=== PATIENT | female | born 1950 | race Caucasian/White ===

== ENCOUNTER 2019-11-05 17:30 | Emergency (ER) | payer OTHER ==
--- NOTE | 2019-11-05 17:43 | PDOC ---
History of Present Illness - General Chief Complaint: Injury Stated Complaint: FELL Time Seen by Provider: 11/05/19 17:43 History Source: Patient Exam Limitations: No Limitations - History of Present Illness Initial Comments: 11/05/19 17:43 PCP: Anjelica Low MD HPI: 69yo F PMH GERD, IBS, hypothyroidism, depression, early menopause (on HRT) and recurrent UTIs presenting s/p fall while in the shower on 11/02 with worsening pain with inspiration today. Patient had a mechanical slip and fall in while exiting the bath tub three days ago and struck her chest - absolutely denies any preceding symptoms or prodrome. No LOC, no blood thinners, did not strike her head. She endorses some pain since the event but it did not limit her from her ADLs. Today she noted new pain with deep inspiration, non-radiating, across the chest wall in tender areas. Denies lightheadedness, dizziness, palpitations, constant chest pain. Denies any other pains. No recent illness, fevers, chills, nausea, vomiting, cough. Patient has a history of chronic PPIs for GERD and has been on HRT since early menopause. Has not taken any pain medication as her "pain has not been that bad." All: ASA, Ibuprofen, PCNs, Sulfa Meds: Per chart PMH: As above, denies cardiac Hx PSH: Per chart, RLL resection Past History - Travel Traveled outside of the country in the last 30 days: No Close contact w/someone who was outside of country & ill: No - Past Medical History Allergies/Adverse Reactions: Allergies Allergy/AdvReac Type Severity Reaction Status Date / Time aspirin Allergy Verified 04/11/13 09:14 ibuprofen Allergy Verified 04/11/13 09:14 Penicillins Allergy Verified 04/11/13 09:14 Sulfa (Sulfonamide Allergy Verified 04/11/13 09:14 Antibiotics) Home Medications: Ambulatory Orders Famotidine [Pepcid Ac] 40 mg PO BID tablet 07/25/14 Estradiol [Menostar] 1 each TD WEEKLY patch 07/27/15 Estrogens,Conjugated [Premarin Vaginal Cream -] 45 gm VG WEEKLY tube 07/27/15 Progesterone,Micronized [Prometrium] 200 mg PO ASDIR capsule 07/27/15 Cholecalciferol (Vitamin D3) [Vitamin D3] 2,000 unit PO DAILY capsule 10/31/16 Escitalopram Oxalate [Lexapro] 10 mg PO HS tablet 10/31/16 Clonazepam 0.5 mg PO HS PRN tablet 02/24/17 GI Disorders: Yes (GERD, IBS) Thyroid Disease: Yes (HYPOTHYROID) - Surgical History Appendectomy: Yes - Psycho Social/Smoking Cessation Hx Smoking Status: No Smoking History: Unknown if ever smoked Number of Cigarettes Smoked Daily: 0 Review of Systems - Review of Systems Able to Perform ROS?: Yes Is the patient limited [place] proficient: Yes Constitutional: No: Chills, Diaphoresis, Fever, Weakness HEENTM: No: Recent change in vision, Nose Congestion, Throat Pain Respiratory: No: Cough, Orthopnea, Shortness of Breath, Wheezing, Productive cough Cardiac (ROS): Yes: See HPI, Chest Pain. No: Edema, Irregular Heart Rate, Lightheadedness, Palpitations, Syncope, Chest Tightness ABD/GI: No: Constipated, Diarrhea, Nausea, Poor Appetite, Poor Fluid Intake, Vomiting : No: Burning, Dysuria, Frequency Musculoskeletal: Yes: See HPI, Muscle Pain. No: Muscle Weakness, Neck Pain Integumentary: No: Erythema, Pallor, Rash Neurological: No: Headache, Numbness, Tingling, Weakness Psychiatric: No: Stressors, Change in Appetite Endocrine: No: Increased Thirst, Increased Urine, Change in Weight Hematologic/Lymphatic: No: Anemia, Blood Clots, Easy Bleeding All Other Systems: Reviewed and Negative *Physical Exam - Physical Exam 11/05/19 18:03 Vitals reviewed, AFVSS GEN: Well appearing, appears stated age, NAD, comfortable. AAOx3. HEENT: NCAT, EOMI, PERRL. Sclera anicteric, noninjected. No facial asymmetry. Moist mucous membranes. Normal voice. Trachea midline. CV: RRR, S1/S2, no murmurs / rubs / gallops appreciated. + mild chest wall tenderness, no bony stepoffs. LUNG: CTAB, normal work of breathing. No wheezes, rales, rhonchi. No cough. Speaking full sentences. GI: Soft, NTND, +BS, no guarding, no rebound. No masses. Neg CVAT b/l. EXTREMITIES: 2+ distal pulses. No LE edema. No obvious deformities of all extremities. SKIN: Warm, dry, no rashes appreciated, non-jaundiced. PSYCH: Normal mood and affect. Cooperative and appropriate. NEURO: CN grossly intact. Moving all extremities well. Normal strength and sensation grossly. Heart Score/ECG Review - History History: Slightly suspicious - Electrocardiogram EKG: Normal - Age Age: >/= 65 - Risk Factors Based on the list above the patient has:: No risk factors known - Troponin Troponin: </= normal limit - Score Heart Score - Total: 2 Medical Decision Making - Medical Decision Making 11/05/19 17:46 69yo F PMH GERD, IBS, hypothyroidism, depression, early menopause (on HRT) and recurrent UTIs presenting s/p fall while in the shower. Chest pain s/p trauma, concerning for rib/msk contusion vs fracture (long-time HRT) vs less likely cardiac/pulm contusion, unlikely PTX. Superimposed OH less likely given description of pains and absence of risk factors (HEART Score tentative 2). - EKG, CXR 11/05/19 18:25 - EKBPM, NSR, normal axis, normal intervals, no ischemic changes, no prior EKG for comparison. 11/05/19 19:01 - CXR without acute fracture or pathology - Patient given incentive spirometer Dispo: Home Discharge - Discharge Information Problems reviewed: Yes Clinical Impression/Diagnosis: Contusion Qualifiers: Encounter type: initial encounter Contusion area: thoracic wall Contusion of thoracic wall detail: front wall of thorax Laterality: unspecified laterality Qualified Code(s): S20.219A - Contusion of unspecified front wall of thorax, initial encounter Condition: Good Disposition: HOME - Admission No - Follow up/Referral Referrals: Roshan Barraza MD [Primary Care Provider] - - Patient Discharge Instructions Patient Printed Discharge Instructions: Contusion, Rib Fracture, DI for Sternum Contusion Additional Instructions: You were seen and evaluated in the [facility] [place] [facility] for chest pain. Your EKG and chest xray were within normal limits. You may take Tylenol as directed on the package label when needed for your pain. Please follow up with your primary care doctor in the next 1-3 days for further evaluation. Return to the ED with any new or concerning symptoms. - Post Discharge Activity
[2019-11-05 17:56] VITALS: BP 120/60; PULSE 74; TEMP 98.6; BMI 21.9
--- NOTE | 2019-11-05 18:07 | PDOC ---
Attending Attestation - Resident Resident Name: JulianRudy - ED Attending Attestation I have performed the following: I have examined & evaluated the patient, The case was reviewed & discussed with the resident, I agree w/resident's findings & plan, Exceptions are as noted - HPI HPI: 11/05/19 18:07 69 yo F here s/p slip and fall in shower 4 days ago. pt was reaching for a towel while getting out of shower, slipped landing and hiting anterior chest on tub rail. c/o pain on deep inspiration. and pain with coughing. no f/c pain was worse today. no f/c did take tylenol with some relief, did not take anything today. no abd pain. back pain soreness. no spinal pain. no new weakness or numbness did not hit her head during fall. 11/05/19 18:59 - Physicial Exam PE: 11/05/19 19:00 awake alert head atraumatic. lungs clear bilat anterior sternal ttp. nocrepitus. no bony step off. no midline spinal tenderness. abd soft nt nd ext wwp. GCX 15. gait normal. speech clear. skin mild eccymosis noted over sternum - Medical Decision Making 11/05/19 18:07 differential rib fracture, chest wall contsuion. plan cxr 11/05/19 19:00 cxr negative. will dc with tylenol for pain. given incentive spirometor for prophylactic. told to fu for persistant pain beyond 10 days fever or any concerns.
[2019-11-05] MEDS ORDERED: ACETAMINOPHEN 500 MG TABLET (FP) PO ONE (18:22)
[2019-11-05] MEDS ORDERED: ACETAMINOPHEN 500 MG TABLET (FP) ONE (18:37)
--- NOTE | 2019-11-06 09:01 | EKG ---
Test Reason : Blood Pressure : / mmHG Vent. Rate : 055 BPM Atrial Rate : 055 BPM P-R Int : 188 ms QRS Dur : 092 ms QT Int : 430 ms P-R-T Axes : 076 -05 047 degrees QTc Int : 411 ms SINUS BRADYCARDIA SEPTAL INFARCT , AGE UNDETERMINED ABNORMAL ECG NO PREVIOUS ECGS AVAILABLE Confirmed by NENA NICHOLS MD ([id number]) on 11/06/2019 9:00:35 AM Referred By: MD SALINAS Confirmed By:NENA NICHOLS MD
== END 2019-11-05 19:17 | disposition home or self-care (01) ==
LOC: FER 17:30
DX: S20.219A Contusion of unspecified front wall of thorax, initial encounter (principal); W18.2XXA Fall in (into) shower or empty bathtub, initial encounter; Y93.E1 Activity, personal bathing and showering; Y92.002 Bathroom of unspecified non-institutional (private) residence as the place of occurrence of the external cause; Z88.0 Allergy status to penicillin; Z88.2 Allergy status to sulfonamides; Z88.8 Allergy status to other drugs, medicaments and biological substances; E03.9 Hypothyroidism, unspecified; K21.9 Gastro-esophageal reflux disease without esophagitis; F32.9 Major depressive disorder, single episode, unspecified; K58.9 Irritable bowel syndrome, unspecified
CPT/HCPCS: 71046-TC-FY; 93005; 99281-25

== ENCOUNTER 2023-04-05 13:33 | Emergency (ER) | payer OTHER, MEDICARE ==
[2023-04-05 13:49] VITALS: BP 122/70; PULSE 63; RESP 16; TEMP 98.8; BMI 21.7
[2023-04-05] MEDS ORDERED: METHOCARBAMOL 500 MG TABLET PO ONE (14:09)
[2023-04-05] MEDS ORDERED: ACETAMINOPHEN 500 MG TABLET (FP) PO ONE (14:09)
[2023-04-05] MEDS ORDERED: METHOCARBAMOL 500 MG TABLET ONE (14:16)
[2023-04-05] MEDS ORDERED: ACETAMINOPHEN 500 MG TABLET (FP) ONE (14:16)
== END 2023-04-05 15:39 | disposition home or self-care (01) ==
LOC: FER 13:33
DX: M54.50 Low back pain, unspecified (principal); R05.9 Cough, unspecified
CPT/HCPCS: 72100-TC-FY; 99283-25

== ENCOUNTER 2024-05-03 01:36 | Emergency (ER) | payer OTHER, MEDICARE ==
[2024-05-03] MEDS ORDERED: LACTULOSE 20 GM/30 ML UDC (FOR ORAL USE ONLY) ONE (01:48)
[2024-05-03] MEDS ORDERED: SIMETHICONE 80 MG TAB.CHEW (FP) ONE (01:50)
[2024-05-03] MEDS: LACTULOSE 20 GM/30 ML UDC (FOR ORAL USE ONLY) PO ONE (01:57)
[2024-05-03] MEDS: SIMETHICONE 80 MG TAB.CHEW (FP) PO ONE (01:57)
[2024-05-03 02:04] VITALS: BP 156/86; PULSE 63; RESP 16; TEMP 97.7; BMI 22.8
[2024-05-03] MEDS: POLYETHYLENE GLYCOL (HEALTHYLAX) 3350 17 GM PACKET PO SCH (03:14)
== END 2024-05-03 03:20 | disposition home or self-care (01) ==
LOC: FER 01:36
DX: K59.00 Constipation, unspecified (principal); R19.7 Diarrhea, unspecified; R11.2 Nausea with vomiting, unspecified
CPT/HCPCS: 74019-TC-FY; 93005; 99284-25